=== PATIENT | male | born 1980 | race Caucasian/White ===

== ENCOUNTER 2019-07-11 14:33 | Emergency (ER) | payer OTHER, SELFPAY ==
[2019-07-11 14:35] VITALS: BP 126/77; PULSE 100; RESP 18; TEMP 36.3; O2SAT 99; BMI 26.2
--- NOTE | 2019-07-11 14:51 | US_ITS ---
STUDY: SCROTUM ULTRASOUND REASON FOR EXAM: Male, 39 years old. Left testicle pain x 4 days TECHNIQUE: Ultrasound evaluation of the scrotum was performed with color Doppler and static benito-scale imaging. COMPARISON: None. FINDINGS: RIGHT TESTICLE INTRATESTICULAR: There is a normal size of the right testicle. The right testicle measures 4.3 cm x 2.7 cm x 2.6 cm. There is a homogenous echotexture. There is normal arterial and normal venous vascularity. There is no demonstrated right testicular mass or cyst. EXTRATESTICULAR: The epididymis is normal in size. The epididymis head measures 1.0 cm x 1.2 cm x 1.4 cm. There is normal vascularity of the epididymis. There is no demonstrated epididymal cystic structure. There is no demonstrated hydrocele. There is no demonstrated varicocele. There is no demonstrated extratesticular mass or cyst. LEFT TESTICLE INTRATESTICULAR: There is a normal size of the left testicle. The left testicle measures 4.8 cm x 3.1 cm x 2.5 cm. There is a homogenous echotexture. There is normal arterial and normal venous vascularity. There is no demonstrated left testicular mass or cyst. EXTRATESTICULAR: The epididymis is normal in size. The epididymis head measures 0.8 cm x 1.5 cm by 1.3 cm. There is normal vascularity of the epididymis. There is no demonstrated epididymal cystic structure. There is a small hydrocele. There is no demonstrated varicocele. There is no demonstrated extratesticular mass or cyst. US/Testicular with Arterial Flow IMPRESSION: Small left hydrocele. Electronically Signed: Herb Beasley, at 15:57 EDT , Service support ,
--- NOTE | 2019-07-11 15:01 | ED.VIS.GEN ---
History of Present Illness Chief Complaint: Male Pain/Injury Informant: Patient Onset: Days Context: Onset with activity, Gradual Onset Timing: Continuous Current Severity: Moderate Maximum Severity: Moderate Narrative: Patient is a 39-year-old healthy male who presents to the emergency department with left testicular pain. He states he noticed a swollen area on his testicle about a week ago. He actually saw his nurse practitioner. He was scheduled for ultrasound later this week. He states over the weekend, he was doing more activity and he started to have more pain. He denies any trouble urinating. He denies any flank pain. He is had no nausea or vomiting. He denies any fevers, chills, or sweats. Prior similar symptoms: No Recent Illness/Hospitalization: No Past Medical History - Allergies and Home Meds Allergies/Adverse Reactions: Allergies ibuprofen Allergy (Verified 07/11/19 14:37) Hives Primary Care Physician: Thompson Don MD [STAFF PHYSICIAN] - Prior records reviewed: Yes Past Medical History: None Surgical History: noncontributory Review of Systems General: Denies: Chills, Fever, Sweats Eyes: Denies: Visual changes - bilaterally, Diplopia ENT: Denies: Rhinorrhea, Sore throat Cardiovascular: Denies: Chest pain, Palpitations Respiratory: Denies: Dyspnea, Cough, Dyspnea on exertion Gastrointestinal: Denies: Abdominal pain, Nausea, Vomiting, Diarrhea, Melena, Hematochezia Genitourinary: Denies: Dysuria, Hematuria, Frequency Musculoskeletal: Denies: Back pain, Extremity Pain Skin: Denies: Rash, Wounds Neurological: Denies: Headache, Weakness, Numbness Physical Exam Vital Signs/Narrative: Vital Signs Temp Pulse Resp BP Pulse Ox 07/11/19 14:35 97.3 F L 100 18 126/77 H 99 Inital Vital Signs reviewed: Yes General: Well nourished, Well developed, No Acute Distress Head: Normocephalic, Atraumatic Eyes: Perrl, EOMI ENT: Moist mucous membranes, No rhinorrhea Neck: Supple, Nontender Cardiovascular: Regular rate, Regular rhythm, No murmurs Respiratory: No distress, CTA bilaterally, Chest nontender Abdomen: Soft, Nontender, Nondistended, Normal bowel sounds : - - Normal cremasteric bilaterally. No lymphadenopathy. Mild tenderness palpation over left testicle. Back: Nontender, Normal Inspection Extremities: Nontender, No edema Skin: Normal color, No rash Neurological: Alert, Oriented x3, Cranial nerves II-XII grossly intact, Normal Strength, Normal Sensation Psychological: Normal affect, Normal Mood Diagnostic/Tx/Re-eval Clinical Impression(s) from Imaging Studies Testicular Ultrasound 07/11/19 14:51 IMPRESSION: Small left hydrocele. Electronically Signed: Herb Beasley, at 15:57 EDT , Service support , - Medical Decision Making The patient presents with left testicular pain. He does have some mild tenderness of the testicle, but there is no evidence of torsion. He has already had UA and labs done as an outpatient which were normal. I did obtain an ultrasound. This does show a small left hydrocele. There is no evidence of torsion, malignancy, or other dangerous process. The patient will be treated with anti-inflammatories and given outpatient urology follow-up. He is comfortable with this plan of care. Impression 1. Left testicular hydrocele ED Disposition - Plan for ED Patient: Prescriptions: Naproxen [Naprosyn] 500 mg PO BID PRN #20 tab Prescription Printed Referrals: Thompson Don MD [STAFF PHYSICIAN] -
[2019-07-11 16:11] VITALS: BP 125/76; PULSE 80; RESP 16; O2SAT 98
== END 2019-07-11 16:11 | disposition home or self-care (01) ==
PROVIDERS: Emergency Provider Emergency Medicine; PCP Family Medicine
DX: N43.3 Hydrocele, unspecified (principal)
CPT/HCPCS: 76870; 93976; 99282